=== PATIENT | male | born 1980 | race Caucasian/White ===

== ENCOUNTER 2016-11-26 13:49 | Inpatient (IN) | payer BC ==
[2016-11-26] MEDS ORDERED: PRINIVIL10 M1 PO (14:16)
[2016-11-26 14:39] LABS: BASO % 0.2 % (0-2); EOS % 0.3 % (0-7); HCT-HEMATOCRIT 47.5 % (36.0-53.5); HGB-HEMOGLOBIN 16.3 gm/dl (13.5-17.0); IMMATURE GRANULOCYTES ABSOLUTE 0.03 tho/cmm (0-0.03); IMMATURE GRANULOCYTES PERCENT 0.3 % (0-0.3); LYMPH % 10.8 % (20-45); LYMPH ABSOLUTE COUNT 1.2 tho/cmm (0.8-4.5); MCH (MEAN CORPUSCULAR HGB) 29.4 pg (28.0-32.0); MCHC MEAN CORPUSCULAR HGB CONC 34.3 % (32.0-36.0); MCV (MEAN CELL VOLUME) 85.7 fl (82.0-96.0); MEAN PLATELET VOLUME 10.8 cmc (9.4-12.4); MONO % 1.9 % (0-12); MONOCYTE ABSOLUTE COUNT 0.2 tho/cmm (0.0-1.2); NEUTROPHIL ABSOLUTE COUNT 9.5 tho/cmm (1.6-8.0); NEUTROPHIL-AUTOMATED 9.5 tho/cmm (1.6-8.0); NEUTROPHILS % 86.5 % (40-80); PLATELET COUNT 311 tho/cmm (150-450); RED BLOOD COUNT 5.54 mil/cmm (4.40-5.70); RED CELL DISTRIBUTION WIDTH 12.6 % (12.4-16.4)
[2016-11-26 14:44] LABS: PROTHROMBIN TIME 11.6 SECONDS (9.0-13.6)
[2016-11-26 14:46] LABS: PARTIAL THROMBOPLASTIN TIME 37 SECONDS (22-38)
[2016-11-26 21:22] LABS: T4 (THYROXINE) 8.3 ug/dl (5.0-12.6); TSH-THYROID STIMULATING HORM. 1.01 uIU/ml (0.40-3.80)
[2016-11-27 04:11] LABS: PROTHROMBIN TIME 11.5 SECONDS (9.0-13.6)
[2016-11-27 04:33] LABS: ANION GAP 11 mmol/L (0-20); BLOOD UREA NITROGEN 11 mg/dl (6-24); CALCIUM 8.4 mg/dl (8.5-10.5); CARBON DIOXIDE-VENOUS 27 mmol/L (22-32); CHLORIDE 107 mmol/l (96-110); CHOLESTEROL 166 mg/dl (120-200); CREATININE 0.93 mg/dl (0.60-1.30); GLUCOSE 121 mg/dL (70-110); HDL CHOLESTEROL 27 mg/dl (40-60); LDL CHOLESTEROL 88 mg/dl (0-99); MAGNESIUM 2.3 mg/dl (1.3-2.6); POTASSIUM 4.1 mmol/L (3.7-5.1); SODIUM 141 mmol/L (135-145); VLDL 51 mg/dl (0-30); eGFR VALUE FOR BLACK >90 mL/Min
[2016-11-27 05:21] LABS: TRIGLYCERIDES 257 mg/dl (<149)
[2016-11-29 07:54] LABS: BASO % 0.2 % (0-2); EOS % 2.4 % (0-7); EOSINOPHIL ABSOLUTE COUNT 0.2 tho/cmm (0.0-0.7); HGB-HEMOGLOBIN 16.3 gm/dl (13.5-17.0); IMMATURE GRANULOCYTES ABSOLUTE 0.03 tho/cmm (0-0.03); IMMATURE GRANULOCYTES PERCENT 0.4 % (0-0.3); LYMPH % 24.6 % (20-45); MCH (MEAN CORPUSCULAR HGB) 29.3 pg (28.0-32.0); MCHC MEAN CORPUSCULAR HGB CONC 34.7 % (32.0-36.0); MCV (MEAN CELL VOLUME) 84.5 fl (82.0-96.0); MEAN PLATELET VOLUME 10.3 cmc (9.4-12.4); MONO % 4.5 % (0-12); MONOCYTE ABSOLUTE COUNT 0.4 tho/cmm (0.0-1.2); NEUTROPHIL ABSOLUTE COUNT 5.6 tho/cmm (1.6-8.0); NEUTROPHIL-AUTOMATED 5.6 tho/cmm (1.6-8.0); NEUTROPHILS % 67.9 % (40-80); PLATELET COUNT 262 tho/cmm (150-450); RED BLOOD COUNT 5.56 mil/cmm (4.40-5.70); RED CELL DISTRIBUTION WIDTH 12.6 % (12.4-16.4); WHITE BLOOD COUNT 8.2 tho/cmm (4.0-10.0)
[2016-11-29 08:15] LABS: ANION GAP 11 mmol/L (0-20); BLOOD UREA NITROGEN 10 mg/dl (6-24); CALCIUM 8.7 mg/dl (8.5-10.5); CARBON DIOXIDE-VENOUS 27 mmol/L (22-32); CHLORIDE 106 mmol/l (96-110); CREATININE 0.95 mg/dl (0.60-1.30); GLUCOSE 109 mg/dL (70-110); POTASSIUM 3.9 mmol/L (3.7-5.1); SODIUM 140 mmol/L (135-145); eGFR VALUE FOR BLACK >90 mL/Min
[2016-11-29] MEDS ORDERED: TYLENOL325 M2 PO (11:22)
[2016-11-29] MEDS ORDERED: ASPIRIN81 M1 PO (11:22)
== END 2016-11-29 12:42 | DRG 312 ==
LOC: EDMED 13:49 → EMR2 17:50 → CCU 19:55 → 5EB 11-27 19:12
PROVIDERS: Emergency Medicine; Internal Medicine; ADMIT Hospitalist
DX: R55 Syncope and collapse (principal); Z68.42 Body mass index [BMI] 45.0-49.9, adult; I10 Essential (primary) hypertension; E66.01 Morbid (severe) obesity due to excess calories; F40.240 Claustrophobia; I51.7 Cardiomegaly; E78.5 Hyperlipidemia, unspecified; R20.0 Anesthesia of skin; G47.30 Sleep apnea, unspecified
CPT/HCPCS: G8978-GP-CI; G8979-GP-CH; G8980-GP-CH; J1644; J7030; Q9967